=== PATIENT | male | born 1960 | race Caucasian/White ===

== ENCOUNTER 2017-03-24 05:35 | Day surgery (SDC) | payer BC ==
[~2017-03-24] VITALS: Ht 170.2 cm; Wt 81.8 kg
[2017-03-24] MEDS ORDERED: LISINOPRIL10 MG PO (06:36)
[2017-03-24] MEDS ORDERED: CARDURA2 MG PO (06:37)
[2017-03-24] MEDS ORDERED: MOBIC7.5 MG PO (06:39)
[2017-03-24] MEDS ORDERED: IBUPROFEN200 MG PO (06:41)
[2017-03-24 07:06] VITALS: Ht 170.2 cm; Wt 81.8 kg
== END 2017-03-24 10:30 | disposition home or self-care (01) ==
LOC: D.OPS 05:35
DX: Z12.11 Encounter for screening for malignant neoplasm of colon (principal); Z01.812 Encounter for preprocedural laboratory examination

== ENCOUNTER → 2018-04-05 11:14 | Outpatient (CLI) | payer BC ==
[~2018-04-05] VITALS: Ht 170.2 cm; Wt 84.1 kg
--- NOTE | ~2018-04-05 | OP ---
PATIENT NAME: JESSICA GILMORE MEDICAL RECORD: [id number] :60 LOCATION:D.CAT ADMISSION DATE: SURGEON: ALFIE MANCINI MD DATE OF OPERATION: 04/05/2018 PROCEDURE: Renal arteriogram. INDICATION: Difficult to control hypertension, positive renal ultrasound. DESCRIPTION OF PROCEDURE: After right femoral artery was cannulated, we initially took tobacco stripper film with pigtail to find the origin of the right and left renal artery. This showed dual system left and single arterial system of the right. The right was selectively engaged, it showed smooth-walled right renal artery without evidence of significant stenosis. Next, both primary and accessory renal arteries on the left were selectively engaged. This showed smooth-walled vessel, was free of disease. IMPRESSION: No evidence of renal artery stenosis. TRANSINT:[id number] Voice Confirmation ID: [id number] DOCUMENT ID: [id number] ALFIE MANCINI MD at 1505 CC: [id number] DICTATION DATE: 04/05/18 1348 YARD SPECIALIST: 04/05/18 1410 DEP CLI 04/05/18 [id number] [place] [address]
--- NOTE | ~2018-04-05 | HEMODYNAMI ---
PATIENT:JESSICA GILMORE MEDICAL RECORD: [id number] : 60 LOCATION:D.CAT ADMISSION DATE: 04/05/18 Generatedon:04/05/201813:45 Patient name: JESSICA GILMORE Patient #: [id number] SSN: : 1960 Date of study: 04/05/2018 Page: Of Hemodynamic Procedure Report Patient Data Patient Demographics Procedure consent was obtained First Name: JESSICA Gender: Male Last Name: DEIRDRE : 1960 Middle Initial: RAY Age: 58 year(s) Patient #: [id number] Race: Unknown Additional ID: [id number] Contact details [address]: [address] [place] [address] State: [place] City: [place] Zip code: [address] Past Medical History Allergies: No known allergies Admission Admission Data Admission Date: 04/05/2018 Admission Time: 11:14 Lab Results Lab Result Date: 04/05/2018 Lab Result Time: 11:40 Biochemistry Name Units Result Min Max BUN mg/dl 12 --(-*--)-- 7 18 Creatinine mg/dl 0.8 --(-*--)-- 0.6 1.3 CBC Name Units Result Min Max Hematocrit % 40.8 -*(----)-- 42 54 Hemoglobin g/dl 14.2 --(*---)-- 13.5 17.5 Procedure Procedure Types Cath Procedure Peripheral Cath Diagnostic Procedure Cath Peripheral Renal Arteriogram Procedure Description Procedure Date Procedure Date: 04/05/2018 Procedure Start Time: 13:31 Procedure End Time: 13:41 Procedure Staff Name Function Reed Murphy MD Performing Physician Jeison Rehman RT Monitor Arik Rodriguez RN Nurse Yris Hatch RT Scrub Leila Wray RT Delivery Specialist Procedure Data Cath Procedure Fluoroscopy Diagnostic fluoroscopy Total fluoroscopy Time: 2.4 time: 2.4 min min Diagnostic fluoroscopy Total fluoroscopy dose: dose: 99.91 mGy 99.91 mGy Contrast Material Contrast Material Type Amount (ml) Isovue 300 122 Entry Location Entry Primary Successful Side Size Upsize Upsize Entry Closure Succes sful Closure Location (Fr) 1 (Fr) 2 (Fr) Remarks Device Remarks Femoral Right 5 Fr Exoseal artery Estimated blood loss: 5 ml Diagnostic catheters Device Type Used For End Catheter Placement DIAGNOSTIC Pigtail 5Fr Procedure catheter ([id number]) Procedure Complications No complications Procedure Medications Medication Administration Route Dosage 0.9% NaCl I.V. 100 ml/hr Oxygen etCO2 Nasal cannula 2 l/min Heparin Flush Bag added to field 2 bags (1000units/500ml NS) Lidocaine 2% added to field 20 Versed I.V. 2 mg Fentanyl I.V. 100 mcg Versed I.V. 2 mg Hemodynamics Rest HGB: 14.2 (g/dl) Heart Rate: 68 (bpm) Snapshots Pre Cath Intra NCS Post Cath Vital Signs Time Heart Resp SPO2 etCO2 NIBP (mmHg) Rhythm Pain Sedation Rate (ipm) (%) (mmHg) Status Level (bpm) 13:19:00 71 19 100 28.4 149/76(119) NSR 0 (11) 10(A) , No pain 13:23:26 62 16 100 39.6 142/69(105) NSR 0 (11) 10(A) , No pain 13:27:52 64 16 93 41.9 120/64(99) NSR 0 (11) 10(A) , No pain 13:32:12 64 30 98 24.6 128/67(100) NSR 0 (11) 10(A) , No pain 13:36:30 69 15 96 0 113/61(87) NSR 0 (11) 10(A) , No pain 13:40:50 63 15 98 34.4 122/59(102) NSR 0 (11) 10(A) , No pain Medications Time Medication Route Dose Verified Delivered Reason Notes Eff ectiveness by by 13:14:36 0.9% NaCl I.V. 100 Arik Arik Per ml/hr Michael Rodriguez physician RN RN 13:14:46 Oxygen etCO2 2 Arik Arik Per Nasal l/min Michael Rodriguez physician cannula RN RN 13:14:56 Heparin Flush added 2 Arik Arik used for Bag to bags Michael Rodriguez procedure (1000units/500ml field RN RN NS) 13:15:07 Lidocaine 2% added 20ml Arik Arik for local to vial Lorigan Lorigan anesthetic field RN RN 13:24:36 Versed I.V. 2 mg Arik Arik for Lorigan Lorigan sedation RN RN 13:24:44 Fentanyl I.V. 100 Arik Arik for mcg Lorigan Lorigan sedation RN RN 13:30:31 Versed I.V. 2 mg Arik Arik for Lorigan Lorigan sedation RN field cane scaler helper Log Time Note 12:59:34 Time tracking: Regular hours (M-F 7:00 - 5:00) 12:59:37 Plan of Care:Hemodynamics will remain stable., Cardiac rhythm will remain stable., Comfort level will be maintained., Respiratory function will remain adequate., Patient/ family verbilizes understanding of procedure., Procedure tolerated without complication., Recovers from procedure without complications.. 13:03:03 Leila Counts RT(R) sent for patient. Start room use. 13:14:36 0.9% NaCl 100 ml/hr I.V. was administered by Arik Rodriguez RN; Per physician; 13:14:46 Oxygen 2 l/min etCO2 Nasal cannula was administered by Arik Rodriguez RN; Per physician; 13:14:56 Heparin Flush Bag (1000units/500ml NS) 2 bags added to field was administered by Arik Rodriguez RN; used for procedure; 13:15:07 Lidocaine 2% 20ml vial added to field was administered by Arik Rodriguez RN; for local anesthetic; 13:16:54 Patient received from Pre/Post Procedure Room to CCL 3 Alert and oriented. Tansferred to table in Supine position. 13:16:55 Warm blankets applied, and mateus hugger turned on for patient comfort. 13:16:56 Correct patient and procedure confirmed by team. 13:16:57 Signed procedure consent form obtained from patient. 13:16:58 ECG and BP/O2 sat monitors applied to patient. 13:17:17 H&P Date Dictated: 03/31/2018 Within 30 days and on chart., H&P Addendum completed by physician on day of procedure. (MUST COMPLETE FOR ALL OUTPATIENTS). 13:17:18 Pre-procedure instructions explained to patient. 13:17:19 Pre-op teaching completed and patient verbalized understanding. 13:17:23 Family in waiting room. 13:17:24 Patient NPO since Midnight. 13:17:32 Patient allergic to No known allergies 13:17:34 Is the patient allergic to Iodine/contrast media? No. 13:17:38 Vital chart was started 13:18:23 Baseline sample Acquired. 13:18:26 Rhythm: sinus rhythm 13:18:28 Full Disclosure recording started 13:21:04 Was the patient premedicated? No 13:21:47 Patient diabetic? No. 13:21:50 Previous problem with sedation/anesthesia? No ? 13:21:55 Snore? Yes 13:21:56 Sleep apnea? No 13:21:57 Deviated septum? No 13:21:58 Opens mouth fully? Yes 13:21:59 Sticks out tongue? Yes 13:22:04 Airway obstruction? No ? 13:22:06 Dentures? No ? 13:22:08 Pre procedure: right dorsailis pedis pulse 2+ Normal; easily identifiable; not easily obliterated 13:22:11 Patient pain scale 0/10 ?. 13:22:42 IV patent on arrival in right forearm with 0.9% NaCl at [facility]. 13:23:30 Lab Result : BUN 12 mg/dl 13:23:30 Lab Result : Hemoglobin 14.2 g/dl 13:23:30 Lab Result : Creatinine 0.8 mg/dl 13:23:30 Lab Result : Hematocrit 40.8 % 13:23:32 Lab results completed and on chart. 13:23:43 Right groin area was prepped with chlora-prep and draped in sterile fashion 13:23:44 Alarms reviewed by R. N. 13:23:45 Sharps counted by scrub and verified by R.N. 13:23:57 ACIST Syringe (91046) opened to sterile field. 13:23:57 Bag Decanter (2002S) opened to sterile field. 13:23:58 Medline Cath Pack ([id number]) opened to sterile field. 13:23:59 ACIST Hand Control (56414) opened to sterile field. 13:24:00 ACIST Manifold (40022) opened to sterile field. 13:24:01 Tegaderm 4 x 4 (1626W) opened to sterile field. 13:24:07 DIAGNOSTIC Multipack 5Fr catheter set ([id number]) opened to sterile field. 13:24:08 DIAGNOSTIC WIRE .035 260cm J wire (898144) opened to sterile field. 13:24:10 SHEATH Prelude 5Fr 0.035 ([id number]-53-035) opened to sterile field. 13:24:18 Physician arrived 13:: --------ALL STOP TIME OUT------ 13:24:19 Final Timeout: patient, procedure, and site verified with staff and physician. All members of the team are in agreement. 13:24:20 Right groin site verified by team. 13:24:22 Physical assessment completed. ASA score P 2 - A patient with mild systemic disease as per Reed Murphy MD. 13::24 Sedation plan: IV Moderate Sedation Medication:Versed, Fentanyl 13:24:36 Versed 2 mg I.V. was administered by Arik Rodriguez RN; for sedation; 13:24:44 Fentanyl 100 mcg I.V. was administered by Arik Rodriguez RN; for sedation; 13:30:31 Versed 2 mg I.V. was administered by Arik Rodriguez RN; for sedation; 13:31:33 Procedure started. 13:31:36 Local anesthetic to right femoral artery with Lidocaine 2% by Reed Murphy MD.INITIAL ACCESS ONLY 13:31:42 A 5 Fr sheath was inserted into the Right Femoral artery 13:32:19 A DIAGNOSTIC Pigtail 5Fr catheter ([id number]) was advanced over the wire and used for Procedure. 13:33:28 Angiography was performed. 13:34:42 Catheter exchanged over wire. 13:34:51 Zero performed for pressure channel P1 13:35:52 Right renal angiography performed. 13:36:37 Left renal angiography performed. 13:38:07 Catheter removed. 13:38:15 EXOSEAL 5Fr (EX500) opened to sterile field. 13:38:25 Sheath removed intact; hemostasis achieved with Exoseal to the Right Femoral artery. 13:38:27 Procedure ended.(Physican Out) 13:39:13 Fluoroscopy time 02.40 minutes. 13:39:19 Fluoroscopy dose: 99.91 mGy 13:39:19 Flurop Dose total: 99.91 13:39:22 Contrast amount:Isovue 300 122ml. 13:39:23 Sharps counted by scrub and verified by R.N. 13:39:24 Insertion/operative site no bleeding no hematoma. 13:39:27 Post-op/insertion site Right Femoral artery dressed using a 4 x 4 and Tegaderm. 13:39:30 Post right femoral artery:stable, soft, clean and dry 13:39:35 Post Procedure Pulses reassessed and unchanged 13:39:38 Post-procedure physical assessment completed. ASA score P 2 - A patient with mild systemic disease as per Reed Murphy MD. 13:40:00 Post procedure rhythm: unchanged. 13:40:06 Estimated blood loss: 5 ml 13:40:07 Post procedure instruction explained to patient.Patient verbalizes understanding. 13:40:08 Patient needs reinforcement of post procedure teaching. 13:40:59 Procedure and supply charges have been captured, reviewed, submitted and are correct. 13:41:01 Procedure Complication : No complications 13:41:04 Vital chart was stopped 13:41:05 See physician's report for complete and final results. 13:41:09 Report given to Pre/Post Procedure Room. 13:41:11 Patient transfered to Pre/Post Procedure Room with Stretcher. 13:41:13 Procedure ended. 13:41:13 Full Disclosure recording stopped 13:41:19 End room use (Document Last) Device Usage Item Name Manufacture Quantity Catalog Number Hospital Part Current M inimal Lot# / Charge Number Stock Stock Serial# Code ACIST Syringe Acist 1 [id number] [id number] 246394 879021 2 0 (33022) [employer] Bag Decanter Microtek 1 2001S 931267 85450 487420 5 () [employer] Medline Cath Cardinal 1 [id number] 815950 60157 195361 5 Pack Health ([id number]) ACIST Hand Acist 1 78262 065975 410706 660164 5 Control (98793) [employer] ACIST Manifold Acist 1 84542 163907 314785 227529 5 (38726) [employer] Tegaderm 4 x 4 3M 1 1626W 767114 054875 902518 5 (1626W) DIAGNOSTIC Cardinal 1 [id number] 267521 91475 804987 3 0 Multipack 5Fr Health catheter set ([id number]) DIAGNOSTIC WIRE [facility] [place] 1 [id number] 542569 887007 200761 3 0 .035 260cm J wire (692472) SHEATH Prelude Merit 1 [id number] 704761 039090 471903 5 5Fr 0.035 Medical ([id number]-8A-46-035) DIAGNOSTIC Cardinal 1 [id number] 309076 001452 995678 5 Pigtail 5Fr Health catheter ([id number]) EXOSEAL 5Fr Cardinal 1 EX500 309302 383363 366475 1 0 (EX500) Health Signature Audit [place] Time Signature Unsigned Intra-Procedure 04/05/2018 Jeison Rehman 1:44:51 PM RT(R) Signatures Monitor : Jeison Rehman RT Signature : Date : Time : [address] [address]
[~2018-04-05 11:14] MED LIST: CARDURA2 MG PO; IBUPROFEN200 MG PO; LISINOPRIL10 MG PO; MICARDIS80 MG PO; MOBIC7.5 MG PO
[2018-04-05 11:31] VITALS: BP 143/53; Ht 170.2 cm; Wt 84.1 kg
[2018-04-05 11:48] LABS: BASOPHILS 0.2 % (0-2); EOSINOPHILS 0.6 % (0-7); HEMATOCRIT 40.8 % (42.0-54.0); HEMOGLOBIN 14.2 g/dL (13.5-17.5); IMMATURE GRANULOCYTES 0.2 % (0-5); LYMPHOCYTES 19.5 % (15-50); MCH 32.4 pg (26.0-34.0); MCHC 34.8 g/dL (31.0-37.0); MCV 93.2 fL (80.0-100.0); MEAN PLATELET VOLUME 10.1 fL (7.4-10.4); MONOCYTES 9.6 % (2-11); NEUTROPHILS 69.9 % (40-80); PLATELET COUNT 171 10x3/uL (130-400); RBC 4.38 10x6/uL (4.20-6.10); RDW 12.5 % (11.5-14.5); WBC 4.8 10x3/uL (4.8-10.8)
[2018-04-05 12:00] LABS: CALC OSMOLALITY 281 mosm/kg (275-300); CALCIUM 8.6 mg/dL (8.5-10.1); CARBON DIOXIDE 26.1 mmol/L (21.0-32.0); CHLORIDE - SERUM 106 mmol/L (98-107); CREATININE - SERUM 0.8 mg/dL (0.6-1.3); GLUCOSE 109 mg/dL (74-106); POTASSIUM - SERUM 4.4 mmol/L (3.5-5.1); SODIUM 141 mmol/L (136-145); UREA NITROGEN 12 mg/dL (7-18); eGFR NON AFRICAN AMERICAN > 90 mL/min (90-120)
== END | disposition home or self-care (01) ==
LOC: D.CATH 11:14
PROVIDERS: Internal Medicine Interventional Cardiology
DX: I10 Essential (primary) hypertension (principal); R93.422 Abnormal radiologic findings on diagnostic imaging of left kidney; R93.421 Abnormal radiologic findings on diagnostic imaging of right kidney

== ENCOUNTER → 2020-12-05 09:01 | Outpatient (CLI) | payer OTHER ==
[2018-04-05 11:31] VITALS: BMI 29.0
== END | disposition home or self-care (01) ==
LOC: D.CT 09:00
PROVIDERS: ATTEND Surgery
DX: D35.02 Benign neoplasm of left adrenal gland (principal)